=== PATIENT | female | born 2000 | race African-American/Black ===

== ENCOUNTER 2022-09-19 20:30 | Emergency (ER) | payer MEDICAID ==
[~2022-09-19] VITALS: Ht 170.2 cm; Wt 105.0 kg
[2022-09-19 20:33] VITALS: O2SAT 100
[2022-09-20 00:15] LABS: BASOPHILS % 0.8 % (0.0-2.0); EOSINOPHILS % 1.2 % (0.0-5.0); HEMATOCRIT. 40.7 % (36.0-48.0); HEMOGLOBIN. 12.9 g/dL (12.0-16.0); LYMPHOCYTES % 13.1 % (20.0-50.0); MEAN CORPUSCULAR HEMOGLOBIN 25.8 pg (28.0-32.0); MEAN CORPUSCULAR HGB CONC 31.6 g/dL (31.0-37.0); MEAN CORPUSCULAR VOLUME 81.5 fL (81.0-99.0); MEAN PLATELET VOLUME 6.9 fl (7.4-10.4); MONOCYTES % 3.4 % (2.0-8.0); NEUTROPHILS % 81.5 % (40.0-76.0); PLATELET 516 x1000/uL (130-400); RED BLOOD CELL COUNT 4.99 mill/uL (4.2-5.4); RED CELL DISTRIBUTION WIDTH 14.6 % (11.6-14.6); WHITE BLOOD COUNT 11.5 x1000/uL (4.5-11.0)
[2022-09-20 00:30] LABS: CHLORIDE 104 mEq/L (98-107); INDEX HEMOLYSI 1 (1-3); INDEX ICTERIC 1 (1-4); INDEX LIPEMIC 1 (1-3); POTASSIUM 4.2 mEq/L (3.5-5.1); SODIUM 136 mEq/L (136-145)
[2022-09-20] MEDS: ACETAMINOPHEN 325MG TABLET PO ONE (00:31)
[2022-09-20] MEDS: ONDANSETRON 4MG ODT PO ONE (00:31)
[2022-09-20 00:42] LABS: ALANINE AMINOTRANSFERASE 23 IU/L (13-61); ALBUMIN 3.8 g/dL (3.4-5.0); ASPARTATE AMINOTRANSFERASE 12 IU/L (15-37); BILIRUBIN TOTAL 0.5 mg/dL (0.1-1.0); CALCIUM 9.3 mg/dL (8.5-10.1); CARBON DIOXIDE 26 mEq/L (21-32); CREATININE 0.7 mg/dL (0.6-1.3); GLUCOSE 107 mg/dL (70-105); PROTEIN TOTAL 8.1 g/dL (6.0-8.3); UREA NITROGEN BLOOD 12 mg/dL (7-21)
[2022-09-20 05:23] LABS: CLARITY URINE CLOUDY (CLEAR); COLOR URINE DARK YELLOW (YELLOW); GLUCOSE URINE NEGATIVE (NEGATIVE); KETONES URINE 2+ (NEGATIVE); LEUKOCYTE ESTERASE URINE TRACE (NEGATIVE); NITRITE URINE NEGATIVE (NEGATIVE); OCCULT BLOOD URINE 3+ (NEGATIVE); PROTEIN URINE 1+ (NEGATIVE); SPECIFIC GRAVITY URINE 1.036 (1.005-1.030)
[2022-09-20 05:50] LABS: BACTERIA URINE TRACE; SQUAMOUS EPITHELIAL CELL URINE 1+ /lpf (RARE/1+); WBC URINE 0-2 /hpf (0-2)
[2022-09-20] MEDS ORDERED: NITR-87 MT (05:52)
[2022-09-20] MEDS ORDERED: ONDA4TAB50 MT (05:52)
[2022-09-20] MEDS ORDERED: TOPUD MT (05:52)
[2022-09-20] MEDS ORDERED: IBUP-1523 MT (05:52)
[2022-09-20 06:13] VITALS: BP 132/80; PULSE 98; RESP 16; TEMP 98.4
== END 2022-09-20 06:13 | disposition home or self-care (01) ==
LOC: ER 20:30
DX: N39.0 Urinary tract infection, site not specified (principal); J45.909 Unspecified asthma, uncomplicated
CPT/HCPCS: 99283; 36415; 80053; 81003; 85025; 87086; Q0162

== ENCOUNTER 2023-01-11 14:24 | Emergency (ER) | payer OTHER ==
[~2023-01-11] VITALS: Ht 167.6 cm; Wt 100.0 kg
[~2023-01-11 14:24] MED LIST: IBUP-1523 MT; NITR-87 MT; ONDA4TAB50 MT; TOPUD MT
[2023-01-11 14:47] VITALS: TEMP 97.9; O2SAT 97
[2023-01-11] MEDS ORDERED: IBUPROFEN 600MG TABLET PO ONE (16:00)
[2023-01-11] MEDS ORDERED: IBUPROFEN 600MG TABLET PO NR (18:45)
[2023-01-11 19:02] VITALS: BP 129/84; PULSE 108; RESP 18
== END 2023-01-11 19:09 | disposition home or self-care (01) ==
LOC: ER 14:24
DX: M25.572 Pain in left ankle and joints of left foot (principal); J45.909 Unspecified asthma, uncomplicated
CPT/HCPCS: 73610; 73630; 29515; 99284; Z7610